=== PATIENT | male | born 1940 | race Two or more races ===

== ENCOUNTER 2016-06-08 15:34 | Emergency (ER) | payer OTHER ==
[~2016-06-08] VITALS: Ht 170.2 cm; Wt 79.4 kg
[2016-06-08 16:03] VITALS: BP 158/75
[2016-06-08] MEDS ORDERED: KETOROLAC TROMETH 30 MG/ML 1ML VIAL IM ONE (17:30)
== END 2016-06-08 19:16 | disposition home or self-care (01) ==
LOC: EDBD 15:34 → ER 15:34
DX: S22.089A Unspecified fracture of T11-T12 vertebra, initial encounter for closed fracture (principal); S46.912A Strain of unspecified muscle, fascia and tendon at shoulder and upper arm level, left arm, initial encounter; M51.36 Other intervertebral disc degeneration, lumbar region; S90.01XA Contusion of right ankle, initial encounter; I10 Essential (primary) hypertension; Z95.1 Presence of aortocoronary bypass graft; V49.49XA Driver injured in collision with other motor vehicles in traffic accident, initial encounter; Y93.89 Activity, other specified; Y99.8 Other external cause status; Y92.410 Unspecified street and highway as the place of occurrence of the external cause
CPT/HCPCS: 71010; 72100; 73030; 73610; 96372; 99284; J1885